=== PATIENT | male | born 2000 | race Hispanic/Latino ===

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

== ENCOUNTER → 2018-01-04 | Outpatient (CLI) | payer OTHER | LOC: M WUC 15:03 | DX: M79.641 Pain in right hand (principal) | CPT/HCPCS: 73130 ==

== ENCOUNTER → 2018-08-31 | Outpatient (CLI) | payer OTHER ==
[~2018-08-31] MED LIST: MOBI4TAB PO
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
== END ==
LOC: M LRY 16:14
PROVIDERS: ATTEND Nurse Practitioner Family
DX: S49.91XA Unspecified injury of right shoulder and upper arm, initial encounter (principal); X58.XXXA Exposure to other specified factors, initial encounter; Y92.9 Unspecified place or not applicable

== ENCOUNTER 2019-05-24 07:07 | Emergency (ER) | payer OTHER, SELFPAY ==
[~2019-05-24] VITALS: Ht 182.9 cm; Wt 80.8 kg
[2019-05-24] MEDS ORDERED: LIDOCAINE 1% MDV 20ML VIAL IM ONE (08:00)
[2019-05-24] MEDS ORDERED: NEOSPORIN TOP OINT 15GM TOP ONE (08:00)
[2019-05-24] MEDS ORDERED: IBUPROFEN 800 MG TAB PO ONE (08:30)
[2019-05-24] MEDS ORDERED: IBUP80TA PO (09:17)
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
[2019-05-24 09:36] VITALS: BP 128/64
== END 2019-05-24 09:36 | disposition home or self-care (01) ==
LOC: M ED 07:07
DX: S80.212A Abrasion, left knee, initial encounter (principal); M25.462 Effusion, left knee; W10.1XXA Fall (on)(from) sidewalk curb, initial encounter; Y92.410 Unspecified street and highway as the place of occurrence of the external cause; Y93.02 Activity, running; Y99.8 Other external cause status; J45.909 Unspecified asthma, uncomplicated; F90.9 Attention-deficit hyperactivity disorder, unspecified type; F17.200 Nicotine dependence, unspecified, uncomplicated

== ENCOUNTER 2019-07-30 12:19 | Emergency (ER) | payer SELFPAY ==
[~2019-07-30] VITALS: Ht 185.4 cm; Wt 80.3 kg
[~2019-07-30 12:19] MED LIST changes: +IBUP80TA PO
[2019-07-30] MEDS ORDERED: DEBR6.5S4 OTIC (14:53)
[2019-07-30] MEDS ORDERED: AUGM875T28 PO (15:35)
[2019-07-30 15:38] VITALS: BP 124/63
== END 2019-07-30 15:41 | disposition home or self-care (01) ==
LOC: M ED 12:19
DX: H61.23 Impacted cerumen, bilateral (principal)

== ENCOUNTER 2020-05-12 10:14 | Emergency (ER) | payer OTHER, SELFPAY ==
[~2020-05-12] VITALS: Ht 185.4 cm; Wt 85.0 kg
[~2020-05-12 10:14] MED LIST changes: +AUGM875T28 PO; +DEBR6.5S4 OTIC
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
[2020-05-12] MEDS ORDERED: ACETAMINOPHEN 325 MG TAB PO ONE (11:15)
[2020-05-12 12:00] VITALS: BP 135/70
== END 2020-05-12 12:03 | disposition home or self-care (01) ==
LOC: M ED 10:14
DX: S00.91XA Abrasion of unspecified part of head, initial encounter (principal); X58.XXXA Exposure to other specified factors, initial encounter; Y92.9 Unspecified place or not applicable; Y93.9 Activity, unspecified; Y99.9 Unspecified external cause status; M25.531 Pain in right wrist

== ENCOUNTER → 2021-03-06 | Outpatient (CLI) | payer OTHER ==
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
== END ==
LOC: M WUC 13:35
PROVIDERS: ATTEND Physician Assistant
DX: M54.5 Low back pain (principal)

== ENCOUNTER → 2021-10-11 | Outpatient (CLI) | payer OTHER | LOC: M RAD 13:47 | PROVIDERS: ATTEND Physician Assistant | DX: S09.93XA Unspecified injury of face, initial encounter (principal); W18.30XA Fall on same level, unspecified, initial encounter; Y92.009 Unspecified place in unspecified non-institutional (private) residence as the place of occurrence of the external cause ==

== ENCOUNTER 2022-02-25 17:39 | Emergency (ER) | payer OTHER ==
[~2022-02-25] VITALS: Ht 188 cm; Wt 83.8 kg
[2022-02-25] MEDS ORDERED: ACETAMINOPHEN 325 MG TAB PO ONE (18:25)
[2022-02-25] MEDS ORDERED: LIDOCAINE 2% MDV 20ML VIAL As Ordered ONE (19:19)
[2022-02-25] MEDS ORDERED: LIDOCAINE 2% MDV 20ML VIAL SC ONE (19:20)
[2022-02-25] MEDS ORDERED: NEOSPORIN OINT 0.9 GM PKT TOP ONE (19:40)
[2022-02-25 20:00] VITALS: BP 126/65
== END 2022-02-25 20:00 | disposition home or self-care (01) ==
LOC: M ED 17:39
DX: S09.90XA Unspecified injury of head, initial encounter (principal); S61.411A Laceration without foreign body of right hand, initial encounter; T07.XXXA Unspecified multiple injuries, initial encounter; S05.11XA Contusion of eyeball and orbital tissues, right eye, initial encounter; W22.8XXA Striking against or struck by other objects, initial encounter; Y04.0XXA Assault by unarmed brawl or fight, initial encounter; Y92.009 Unspecified place in unspecified non-institutional (private) residence as the place of occurrence of the external cause; J45.909 Unspecified asthma, uncomplicated; F90.9 Attention-deficit hyperactivity disorder, unspecified type

== ENCOUNTER 2023-04-06 18:15 | Emergency (ER) | payer OTHER ==
[~2023-04-06] VITALS: Ht 188 cm; Wt 89.4 kg
[2023-04-06 18:15] VITALS: BP 142/82; TEMP 98; O2SAT 95
[~2023-04-06 18:15] MED LIST changes: +IBUP-1022 PO; +ONDA4TAB6 PO
== END 2023-04-06 18:40 | disposition left against medical advice (07) ==
LOC: M ED 18:15
DX: Z53.21 Procedure and treatment not carried out due to patient leaving prior to being seen by health care provider (principal)

== ENCOUNTER 2024-03-03 18:31 | Emergency (ER) | payer OTHER ==
[~2024-03-03] VITALS: Ht 188 cm; Wt 103.5 kg
[~2024-03-03 18:31] MED LIST changes: +ONDA-282 PO; -ONDA4TAB6 PO
[2024-03-03 22:28] VITALS: BP 137/94; TEMP 97.9; O2SAT 98
== END 2024-03-03 22:29 | disposition home or self-care (01) ==
LOC: M ED 18:31
DX: S62.344A Nondisplaced fracture of base of fourth metacarpal bone, right hand, initial encounter for closed fracture (principal); W22.8XXA Striking against or struck by other objects, initial encounter; Y92.9 Unspecified place or not applicable; Y93.9 Activity, unspecified; Y99.9 Unspecified external cause status; F31.9 Bipolar disorder, unspecified; F90.9 Attention-deficit hyperactivity disorder, unspecified type

== ENCOUNTER → 2024-03-23 | Outpatient (CLI) | payer OTHER | LOC: M SOG 07:56 | PROVIDERS: ATTEND Physician Assistant | DX: S62.304A Unspecified fracture of fourth metacarpal bone, right hand, initial encounter for closed fracture (principal); W18.30XA Fall on same level, unspecified, initial encounter; Y92.009 Unspecified place in unspecified non-institutional (private) residence as the place of occurrence of the external cause ==